=== PATIENT | male | born 1985 | race Caucasian/White ===

== ENCOUNTER 2021-10-15 23:42 | Emergency (ER) | payer BC, SELFPAY ==
[2021-10-15 23:43] VITALS: BP 160/79; PULSE 72; RESP 18; TEMP 36.9; O2SAT 100; BMI 32.8
[2021-10-15] MEDS: Tetracaine 0.5% Ophthalmic Bottle 1 DRP RIGHT EYE (23:57)
[2021-10-15] MEDS: Fluorescein 1 MG STRIP 1 STRIP RIGHT EYE (23:58)
--- NOTE | 2021-10-16 00:57 | EX.ED.VIS.EY ---
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 He states approximately 1 day ago he was working where he was grinding some metal and had safety glasses on but they were not covering all sections of his eyes. He states at 1 point they began to followed up and he did remove them to wipe away the condensation and at that time noticed some irritation to his right eye. He states he did not think much of this but as time went by he had increased pain redness swelling and light sensitivity and therefore presents for evaluation. The patient admits to wearing glasses and states he occasionally wears contact lenses but has not done so for the past week. [facility] Medical History (Updated 10/16/21 @ 00:[address] Boni Emery, ) Arthritis Home Medications ciprofloxacin HCl 2 drp RIGHT EYE 4X/DAY 5 Days #10 ml 10/16/21 [Rx Last Taken Unknown] oxycodone-acetaminophen [Percocet] 1 tab PO Q6H PRN 3 Days #12 tab 10/16/21 [Rx Last Taken Unknown] Allergy/AdvReac Type Severity Reaction Status Date / Time Penicillins Allergy Unknown Verified 10/15/21 23:45 Social History (Updated 05/10/19 @ 14:38 by Christofer POE, PA) Smoking Status: Former smoker ROS ROS ED Constitutional Constitutional ED: Denies chills or fever(s) Eyes Eyes: Reports blurry vision and other Details: Positive photophobia ENT ENT ED: Denies sore throat Cardiovascular Cardiovascular: Denies chest pain Respiratory/Chest Respiratory/Chest: Denies cough or dyspnea Gastrointestinal Gastrointestinal: Denies abdominal pain, diarrhea, nausea or vomiting Genitourinary Genitourinary ED: Denies dysuria Musculoskeletal Musculoskeletal: Denies myalgias Integumentary Denies rash Neurologic Neurologic: Denies headache(s) Hematologic/Lymphatic Hematologic/Lymphatic: Denies easy bleeding or easy bruising EXAM Physical Exam Const Vital Signs: 10/15/21 23:43 Temperature 98.4 F Temperature Source Temporal Pulse Rate 72 Respiratory Rate 18 Blood Pressure 160/79 H Blood Pressure Mean 106 Pulse Ox 100 Oxygen Delivery Method Room Air Positive well nourished and well developed General Appearance ED: well developed HEENT Reports moist mucous membranes atraumatic Eyes PERRL and EOMs intact bilaterally Eyes Narrative: Pupils are equal and reactive to light and accommodation. Extraocular muscles are intact. There is soft tissue swelling of the upper and lower eyelid on the right. Patient has scleral injection present. There is a foreign body present over top the iris at the 4 to 5 o'clock position. No foreign body located underneath the upper eyelid. Wood's lamp exam shows corneal abrasion over top the area where the foreign body is present but otherwise no signs of trauma or negative May sign. Neck supple Resp normal respiratory effort and clear to auscultation bilaterally Cardio regular rate and regular rhythm Extremity normal to inspection Neuro oriented x3 and CN's II-XII intact bilaterally Sensorium / Orientation: alert Psych mental status grossly normal Skin no rashes or lesions noted Skin Narrative: Soft tissue swelling to the upper and lower eyelid of the right as documented above Lesions: no lesions Rashes: no rashes MDM MDM MDM Narrative Medical decision making narrative: Patient presented to the ER with history concerning for corneal abrasion and foreign body. Exam did confirm this but there is no signs of globe rupture. The patient was given tetracaine and had resolution of his pain. A bur was used to try to remove the corneal foreign body and approximately 90% of the foreign body was able to be dislodged from the cornea. Despite recurrent attempts however I could not remove the remainder of the foreign body or rust ring. Therefore the patient will be placed on Cipro eyedrops to prevent infection and Percocet for pain control. He will follow up with ophthalmology to complete the removal of the rust ring and foreign body. Patient understands he is not to wear his contact lenses and is agreeable to this plan. Discharge Plan Triage Chief Complaint: Eye Problem ED Provider: Boni Emery Dx/Rx/DC Orders Clinical Impression: Foreign body in conjunctival sac, right eye, initial encounter Instructions: ED Corneal Abrasion, ED RUST RING Prescriptions: New oxycodone-acetaminophen [Percocet] 5-325 mg tablet 1 tab PO Q6H PRN (Reason: pain) 3 Days Qty: 12 RF: 0 ciprofloxacin HCl 0.3 % drops 2 drp RIGHT EYE 4X/DAY 5 Days Qty: 10 RF: 0 Primary Care Provider: Care Physician,No Primary Referrals: Sobia Wu MD [STAFF PHYSICIAN] - 3-5 Days NOT,DEFINED [NON-STAFF] - Activity Restrictions/Additional Instructions: Please follow-up with ophthalmology secondary to the fact there is still a partial foreign body located in your cornea. Do not wear contact lenses until instructed by ophthalmology either. Disposition Disposition: Home, Self Care Discharge Date/Time: 10/16/21 01:09
[2021-10-16] MEDS: oxyCODONE 5 MG Tablet 10 MG PO (01:04)
[2021-10-16] MEDS: Ciprofloxacin 0.3% 2.5ml Bottle 2 DRP RIGHT EYE (01:04)
[2021-10-16 01:06] VITALS: BP 122/78; PULSE 68; O2SAT 98
== END 2021-10-16 01:09 | disposition home or self-care (01) ==
LOC: ED 10-16 01:06
PROVIDERS: Emergency Provider Emergency Medicine; Visit Provider Emergency Medicine
DX: T15.11XA Foreign body in conjunctival sac, right eye, initial encounter (principal); Z87.891 Personal history of nicotine dependence; X58.XXXA Exposure to other specified factors, initial encounter
CPT/HCPCS: 99283